=== PATIENT | male | born 1985 | race Native Hawaiian/Other Pacific Islander ===

== ENCOUNTER 2016-06-06 04:24 | Emergency (ER) | payer OTHER | END 2016-06-06 04:30 | disposition home or self-care (01) | LOC: CED 04:24 | DX: H66.91 Otitis media, unspecified, right ear (principal); F17.210 Nicotine dependence, cigarettes, uncomplicated | CPT/HCPCS: 96372; 99283; J1885 ==

== ENCOUNTER 2016-06-17 03:58 | Emergency (ER) | payer OTHER | END 2016-06-17 04:20 | disposition home or self-care (01) | LOC: CED 03:58 | DX: H92.01 Otalgia, right ear (principal); F17.210 Nicotine dependence, cigarettes, uncomplicated | CPT/HCPCS: 99282 ==

== ENCOUNTER 2016-10-31 20:03 | Emergency (ER) | payer OTHER | END 2016-10-31 21:00 | disposition home or self-care (01) | LOC: CED 20:03 → CFTX 20:03 | DX: H66.91 Otitis media, unspecified, right ear (principal); F17.210 Nicotine dependence, cigarettes, uncomplicated | CPT/HCPCS: 99282 ==